=== PATIENT | female | born 1960 | race Caucasian/White ===

== ENCOUNTER → 2023-12-01 07:31 | Outpatient (REF) | payer OTHER, SELFPAY | LOC: HWRAD 07:31 | PROVIDERS: ATTENDING PHYSICIAN Nurse Practitioner Adult Health | DX: Z78.0 Asymptomatic menopausal state (principal); Z12.31 Encounter for screening mammogram for malignant neoplasm of breast | CPT/HCPCS: 77063; 77067; 77080 ==

== ENCOUNTER → 2023-12-02 07:43 | Outpatient (REF) | payer OTHER, SELFPAY | LOC: HWRAD 07:43 | PROVIDERS: ATTENDING PHYSICIAN Nurse Practitioner Adult Health | DX: N85.00 Endometrial hyperplasia, unspecified (principal); R16.0 Hepatomegaly, not elsewhere classified | CPT/HCPCS: 76700; 76830; 76856 ==

== ENCOUNTER → 2024-10-03 15:22 | Outpatient (REF) | payer MEDICARE, OTHER, SELFPAY | LOC: MRI 3T 15:22 | PROVIDERS: ATTENDING PHYSICIAN Internal Medicine; FAMILY PHYSICIAN Nurse Practitioner Adult Health | DX: K70.31 Alcoholic cirrhosis of liver with ascites (principal); R19.04 Left lower quadrant abdominal swelling, mass and lump | CPT/HCPCS: 72197; A9575 ==

== ENCOUNTER 2024-10-20 06:53 | Outpatient (REF) | payer MEDICARE, OTHER, SELFPAY ==
[2024-10-20] VITALS (15 sets, daily range): BP systolic 61–130; BP diastolic 64–92
[2024-10-20 07:21] LABS: Hematocrit 42.4 % (37.0-47.0); Mean Corpuscular Volume 84.8 fL (81.0-99.0); Mean Platelet Volume 8.6 fL (7.4-10.4); Platelet Count 99 10^3/uL (130-400); Red Cell Dist. Width 14.7 % (11.5-14.5); White Blood Cell Count 2.9 10^3/uL (4.8-10.8)
[2024-10-20 07:26] LABS: INR 1.17; PT 15.5 Sec (11.4-14.6)
== END 2024-10-20 11:20 | disposition home or self-care (01) ==
LOC: RADI 06:53
PROVIDERS: ATTENDING PHYSICIAN Internal Medicine; FAMILY PHYSICIAN Nurse Practitioner Adult Health
DX: D18.03 Hemangioma of intra-abdominal structures (principal); K74.60 Unspecified cirrhosis of liver; D68.8 Other specified coagulation defects
CPT/HCPCS: 88307; 36415; 47000; 76942; 85027; 85610; 88313; 88333; 88341; 88342; 99152

== ENCOUNTER → 2024-11-24 08:57 | Outpatient (REF) | payer MEDICARE, OTHER, SELFPAY ==
[2024-11-24 09:44] VITALS: BP 106/73; BP_SYST 84
[2024-11-24 14:03] VITALS: BP 118/80
== END ==
LOC: RADI 08:57
PROVIDERS: ATTENDING PHYSICIAN Internal Medicine Hematology & Oncology; FAMILY PHYSICIAN Nurse Practitioner Adult Health
DX: D48.114 Desmoid tumor, intraabdominal (principal)
CPT/HCPCS: 88305; 49180; 77012; 88333; 88334; 88341; 88342; 99152; 99153

== ENCOUNTER 2024-12-06 06:24 | Day surgery (SDC) | payer MEDICARE, OTHER, SELFPAY | END 2024-12-06 10:38 | disposition home or self-care (01) | LOC: GI 06:24 | PROVIDERS: ATTENDING PHYSICIAN Internal Medicine | DX: Z12.11 Encounter for screening for malignant neoplasm of colon (principal); D12.2 Benign neoplasm of ascending colon; D12.5 Benign neoplasm of sigmoid colon; K63.5 Polyp of colon; K57.30 Diverticulosis of large intestine without perforation or abscess without bleeding; R85.613 High grade squamous intraepithelial lesion on cytologic smear of anus (HGSIL); I85.10 Secondary esophageal varices without bleeding; K22.89 Other specified disease of esophagus; K22.2 Esophageal obstruction; K74.60 Unspecified cirrhosis of liver; K44.9 Diaphragmatic hernia without obstruction or gangrene; K31.811 Angiodysplasia of stomach and duodenum with bleeding; K31.89 Other diseases of stomach and duodenum; Z86.0101 Personal history of adenomatous and serrated colon polyps | CPT/HCPCS: 45385; 45380; 43255; 43239; 88305; 88342 ==

== ENCOUNTER → 2024-12-26 12:12 | Outpatient (REF) | payer MEDICARE, OTHER, SELFPAY | LOC: HWWDC 12:12 | PROVIDERS: ATTENDING PHYSICIAN Nurse Practitioner Adult Health | DX: Z12.31 Encounter for screening mammogram for malignant neoplasm of breast (principal) | CPT/HCPCS: 77063; 77067 ==

== ENCOUNTER → 2024-12-28 10:58 | Outpatient (REF) | payer MEDICARE, OTHER, SELFPAY ==
[2025-01-03 17:07] LABS: HPV, High Risk Not Detected; HPV, High Risk Source Anal
== END ==
LOC: CLAB 10:58
PROVIDERS: ATTENDING PHYSICIAN Surgery
DX: R85.613 High grade squamous intraepithelial lesion on cytologic smear of anus (HGSIL) (principal)
CPT/HCPCS: 87624; 88112

== ENCOUNTER → 2024-12-30 08:45 | Outpatient (REF) | payer MEDICARE, OTHER, SELFPAY | LOC: CLAB 08:45 | PROVIDERS: ATTENDING PHYSICIAN Obstetrics & Gynecology Gynecology | DX: R93.89 Abnormal findings on diagnostic imaging of other specified body structures (principal); N84.0 Polyp of corpus uteri | CPT/HCPCS: 88305 ==

== ENCOUNTER → 2025-01-05 10:12 | Outpatient (REF) | payer MEDICARE, OTHER, SELFPAY | LOC: WDC 10:12 | PROVIDERS: ATTENDING PHYSICIAN Nurse Practitioner Adult Health | DX: R92.8 Other abnormal and inconclusive findings on diagnostic imaging of breast (principal) | CPT/HCPCS: 76642 ==

== ENCOUNTER 2025-01-17 08:52 | Inpatient (IN) | payer MEDICARE, OTHER, SELFPAY ==
[2025-01-09 08:53] LABS: INR 1.18; PT 15.3 Sec (11.4-14.6)
[2025-01-09 08:54] LABS: APTT 36.2 Sec (23.4-35.0)
[2025-01-09 09:00] LABS: Hematocrit 41.5 % (37.0-47.0); Hemoglobin 13.4 g/dL (12.0-16.0); Mean Corp Hgb Conc. 32.3 g/dL (33.0-37.0); Mean Corpuscular Hgb 27.7 pg (27.0-31.0); Mean Corpuscular Volume 85.7 fL (81.0-99.0); Mean Platelet Volume 9.2 fL (7.4-10.4); Platelet Count 105 10^3/uL (130-400); Red Blood Cell Count 4.84 10^6/uL (4.20-5.40); Red Cell Dist. Width 14.9 % (11.5-14.5); White Blood Cell Count 2.3 10^3/uL (4.8-10.8)
[2025-01-09 09:54] LABS: ALT (SGPT) 28 U/L (0-35); AST (SGOT) 38 U/L (14-36); Alkaline Phosphatase 117 U/L (38-126); Blood Urea Nitrogen 12 mg/dl (7-17); Calcium 9.1 mg/dl (8.4-10.2); Carbon Dioxide 24 mmol/L (22-30); Chloride 108 mmol/L (98-107); Glucose 110 mg/dl (70-99); Potassium 4.1 mmol/L (3.5-5.1); Sodium 141 mmol/L (135-145); Total Bilirubin 0.9 mg/dl (0.2-1.3); Total Protein 6.9 g/dl (6.3-8.2); eGFR > 60.00
[2025-01-09 13:52] VITALS: BMI 24.3
--- NOTE | 2025-01-10 09:41 | PTCARENOTE ---
Nataliia in Dr. Choudhury's office made aware of WBC 2.3.
[2025-01-17] VITALS (13 sets, daily range): BP systolic 103–138; BP diastolic 65–96; BMI 24.3
[2025-01-17] MEDS: HEPARIN 5000 UNITS SC ×2 (09:02→19:17)
[2025-01-17] MEDS: TYLENOL 1000 MG PO (09:02)
[2025-01-17] MEDS: NEURONTIN 300 MG PO (09:02)
[2025-01-17] MEDS: NORMOSOL-R/PLASMALYTE-A 1000 IV (09:03)
[2025-01-17] MEDS: D5/0.9% SODIUM CHLORIDE 1000 IV (13:56)
--- NOTE | 2025-01-17 15:39 | CM ---
Patient seen at bedside
IA completed
Lives with & daughter in a 2 story home, 1 step to enter, flight to bedroom, powder room 1st floor
PLOF: Independent
Denies DME
Denies HH/Rehab
PCP: Christy Ruelas
Pharmacy: [address], [place]
PLAN: Home, no needs anticipated when medically stable
[2025-01-17] MEDS: ANCEF 10 IV (17:44)
[2025-01-17] MEDS: NSS (PRESERVATIVE FREE) 8 ML IV (19:17)
[2025-01-17] MEDS: PEPCID 20 MG IV (19:18)
[2025-01-18] MEDS: D5/0.9% SODIUM CHLORIDE 1000 IV ×2 (00:01→10:11)
[2025-01-18] MEDS: TUMS CHEWABLE TABLET 400 MG PO ×2 (03:06→07:56)
[2025-01-18 03:15] VITALS: BP 124/82
[2025-01-18 07:14] LABS: Hematocrit 39.6 % (37.0-47.0); Hemoglobin 13.4 g/dL (12.0-16.0); Mean Corp Hgb Conc. 33.8 g/dL (33.0-37.0); Mean Corpuscular Hgb 28.2 pg (27.0-31.0); Mean Corpuscular Volume 83.4 fL (81.0-99.0); Mean Platelet Volume 8.6 fL (7.4-10.4); Platelet Count 95 10^3/uL (130-400); Red Blood Cell Count 4.75 10^6/uL (4.20-5.40); Red Cell Dist. Width 14.6 % (11.5-14.5); White Blood Cell Count 9.5 10^3/uL (4.8-10.8)
[2025-01-18 07:20] LABS: INR 1.28; PT 16.2 Sec (11.4-14.6)
[2025-01-18 07:21] LABS: APTT 37.2 Sec (23.4-35.0)
[2025-01-18 07:30] VITALS: BP 140/84
[2025-01-18 07:39] LABS: Blood Urea Nitrogen 12 mg/dl (7-17); Calcium 9.1 mg/dl (8.4-10.2); Carbon Dioxide 22 mmol/L (22-30); Chloride 107 mmol/L (98-107); Estimated Creatinine Clearance 88 ml/min; Glucose 149 mg/dl (70-99); Potassium 4.1 mmol/L (3.5-5.1); Sodium 140 mmol/L (135-145); eGFR > 60.00
[2025-01-18] MEDS: HEPARIN 5000 UNITS SC (07:56)
[2025-01-18] MEDS: NSS (PRESERVATIVE FREE) 8 ML IV (07:57)
[2025-01-18] MEDS: PEPCID 20 MG IV (07:57)
[2025-01-18 08:41] VITALS: BP 140/84; BP 141/73; PULSE 81; O2SAT 97
--- NOTE | 2025-01-18 10:01 | PTOTSP ---
The patient is independent with ambulation and elevations, offering no concerns regarding mobility upon return home. Patient has been ambulating independently on her own. No PT needs identified at this time, will sign off.
[2025-01-18] MEDS: ANCEF 10 IV ×2 (10:11)
--- NOTE | 2025-01-18 10:33 | CM ---
Reviewed the chart notes and spoke with the patient at the bedside. Patient reports still being NPO. Patient ambulating in hallway unassisted. CM continues to be available to patient/family and is monitoring medical plan for needs at discharge.
Plan: Discharge to home when medically stable. No needs anticipated at this time.
[2025-01-18 11:15] VITALS: BP 138/84
--- NOTE | 2025-01-18 14:31 | W.PN.GENERIC ---
Assessment / Plan
-
S/p abdominal desmoid tumor resection POD#1
Stable
Will increase diet to full liquid
Change IV to PO meds
OOB and ambulate
DC ruiz catheter
Physician Progress Note
Subjective
NO c/o. Has some bloating earlier but feeling better. Tolerating clears without N/V. No significant pain
Objective
Vital Signs
Temp Pulse Resp BP Pulse Ox
97.7 F 78 16 138/84 97
01/18/25 11:15 01/18/25 11:15 01/18/25 11:15 01/18/25 11:15 01/18/25 11:15
Lab Results
01/18/25 06:49
01/18/25 06:49
Abdomen - soft ND NT Dsg - intact
[2025-01-18 15:10] VITALS: BP 135/76
[2025-01-18] MEDS: NEURONTIN 100 MG PO ×2 (15:23→21:11)
[2025-01-18] MEDS: TORADOL 15 MG IV ×2 (15:23→18:09)
[2025-01-18] MEDS: COLACE 100 MG PO (21:11)
[2025-01-18] MEDS: NSS (PRESERVATIVE FREE) IV (21:12)
[2025-01-18 23:09] VITALS: BP 115/73
[2025-01-19] MEDS: TORADOL 15 MG IV ×2 (00:59→05:55)
--- NOTE | 2025-01-19 06:07 | PTCARENOTE ---
Pt slept well overnight. ABD dressing intact with small amount old drainage. Pt reports pain at tolerable level. Pt states she is ready for discharge. Left hand int capped. No issues to report at this time. Will continue to monitor.
[2025-01-19 07:39] LABS: Hematocrit 37.4 % (37.0-47.0); Hemoglobin 12.8 g/dL (12.0-16.0); Mean Corp Hgb Conc. 34.2 g/dL (33.0-37.0); Mean Corpuscular Hgb 28.6 pg (27.0-31.0); Mean Corpuscular Volume 83.5 fL (81.0-99.0); Mean Platelet Volume 9.1 fL (7.4-10.4); Platelet Count 112 10^3/uL (130-400); Red Blood Cell Count 4.48 10^6/uL (4.20-5.40); White Blood Cell Count 6.8 10^3/uL (4.8-10.8)
[2025-01-19 07:56] VITALS: BP 164/86
[2025-01-19 08:20] LABS: Blood Urea Nitrogen 19 mg/dl (7-17); Calcium 9.1 mg/dl (8.4-10.2); Carbon Dioxide 24 mmol/L (22-30); Chloride 108 mmol/L (98-107); Estimated Creatinine Clearance 88 ml/min; Glucose 105 mg/dl (70-99); Sodium 142 mmol/L (135-145); eGFR > 60.00
[2025-01-19] MEDS: NEURONTIN 100 MG PO (08:50)
[2025-01-19] MEDS: COLACE 100 MG PO (08:50)
[2025-01-19] MEDS: NSS (PRESERVATIVE FREE) IV (08:56)
[2025-01-19] MEDS: TORADOL IV (11:49)
--- NOTE | 2025-01-19 14:17 | CM ---
Patient seen at bedside.
IMM explained & signed.
PLAN: home, no needs
daughter to transport
[2025-01-19 15:20] VITALS: BP 110/73
--- NOTE | 2025-01-19 17:04 | W.DCSUMMARY ---
Discharge Summary
Discharge Data
Date of Admission: 01/17/25
Date of Discharge: 01/19/25
-
Pending Results: No
Discharge Plan
-
Patient Disposition: Home (Routine Discharge)
Discharge Diagnosis/Procedures: Abdominal desmoid tumor
Diet: As tolerated
Activity: No strenuous activity
Driving Restrictions: No driving for 1 week
Bathing Restrictions: OK to Shower
Activity Restrictions/Additional Instructions:
Call Dr. Choudhury's office ([phone]) for a followup appointment.
Tylenol an motrin for pain.
Referrals:
Eligio Ruelas CRNP [Family Provider] -
Prescriptions:
Continued
cholecalciferol (vitamin D3) [Vitamin D3] 25 mcg (1,000 unit) Capsule
25 mcg PO DAILY
multivitamin Tablet
1 tab PO DAILY
calcium carbonate 500 mg calcium (1,250 mg) Tablet
500 mg PO DAILY
Discharge Orders:
Discharge Patient (As Directed); Ordered 01/19/25
Ordered By: John Paul Choudhury
Discharge Date and Time
Print Language: THAI
--- NOTE | 2025-01-19 17:05 | W.DS.TRANS ---
DC Summary - [employer]
-
Discharge Instructions:
Sleep Apnea Risk Low
Discharge Diagnosis/Procedures Abdominal desmoid tumor
Diet As tolerated
Activity No strenuous activity
Driving Restrictions No driving for 1 week
Bathing Restrictions OK to Shower
Instructions:
Stand-Alone Forms:
Changes to Home Medications: No
Discharge Medications:
DC Medications w/original date entered in [employer]
cholecalciferol (vitamin D3) 25 mcg (1,000 unit) capsule (Vitamin D3) 25 mcg PO DAILY Supplement 10/17/24
calcium carbonate 500 mg PO DAILY Supplement 01/10/25
multivitamin 1 tab PO DAILY Supplement 01/10/25
Home Medication Changes
Pending Results: No
--- NOTE | 2025-01-24 10:15 | OR.RPT ---
Operative Report
Operative Report
Date of Operation: January 17, 2025
Preoperative Diagnosis: Abdominal Tumor - [id number]
Postoperative Diagnosis: Same
Surgeon: John Paul Choudhury M.D.
Operation: Abdomen Tumor Resection - 02947 (~12 cm)
Anesthesia: Local with IV sedation
Estimated Blood Loss: Minimal
Drains: None
Specimen: abdominal tumor
Complications: �None
Procedure:
The patient was taken to the operating room and placed in the usual supine position. After a successful endotracheal tube was placed and the establishment of general anesthesia, a Finnegan catheter was placed. The patient's abdomen was prepped and
draped in the usual sterile fashion. An upper midline incision was made from the xiphoid process to the umbilicus. The skin incision was made with a #10 blade, and this was taken through the skin into the subcutaneous tissue. The fascia was
identified and divided, and the abdomen was entered. Upon entering the abdomen, a thorough exploration was performed. The liver was noted to be nodular without any significant masses. There was no peritoneal disease.
On the left side of the abdomen, a large tumor involving the proximal jejunal mesentery extended into the retroperitoneum. This was carefully mobilized medially. First, the small bowel about 12 inches proximal to the tumor was divided with a LAKE,
and the mesentery was divided using a large energy device and 2-0 silk tie and clamp techniques to the retroperitoneum. The small bowel, about 12 inches distal to the tumor, was transected with a LAKE, and the mesentery was taken towards the
retroperitoneum. In the retroperitoneal area, the tumor was noted to be stuck to the fourth portion of the duodenum, which was carefully dissected away from it. The tumor was resected with about 12 inches of the small bowel and sent to pathology for
a permanent section. At this time, [id number] stapled anastomosis was performed with a 90-LAKE stapler. The enterotomy was closed with #3-0 Prolene in a running fashion. The staple lines were reinforced with #3-0 silk in the serosa layer in an
interrupted fashion. The fascia defect was approximated with #2-0 silk in a running fashion. Hemostasis was obtained. At this time, the fascia was approximated with #0 PDS. Subcutaneous tissue was re-approximated with #3-0 Vicryl in a running
fashion. The skin was approximated with #4-0 Monocryl in a running subcuticular fashion. Steri-Strips were applied.
The patient was extubated without any problems. The final needle, sponge, and instrument counts were correct. The patient was transferred to the recovery room.
== END 2025-01-19 18:10 | disposition home or self-care (01) | DRG 517 ==
LOC: 2 SOUTH 08:52
PROVIDERS: ADMITTING PHYSICIAN Surgery; FAMILY PHYSICIAN Nurse Practitioner Adult Health
PROC: 0WBH0ZZ Excision of Retroperitoneum, Open Approach (ICD-10-PCS; 2025-01-17)
PROC: 0DB80ZX Excision of Small Intestine, Open Approach, Diagnostic (ICD-10-PCS; 2025-01-17)
PROC: 0DBV0ZX Excision of Mesentery, Open Approach, Diagnostic (ICD-10-PCS; 2025-01-17)
DX: D48.114 Desmoid tumor, intraabdominal (principal); K74.60 Unspecified cirrhosis of liver; F10.11 Alcohol abuse, in remission; Z88.2 Allergy status to sulfonamides
CPT/HCPCS: 88307; 36415; 80048; 80053; 85027; 85610; 85730; 86850; 86900; 86901; 93005; 97162; 97166; C1776; C9250